=== PATIENT | male | born 1960 | race Caucasian/White ===

== ENCOUNTER 2018-05-12 10:25 | Outpatient (REF) | payer BC, SELFPAY ==
--- NOTE | 2018-05-12 09:10 | SKI_PTH ---
PATIENT: Catrachito Bragg LOC: [facility] U#:[id number] AGE/SX: 58/M ROOM: RE05/12/[address]: Bruno Cortes : 1960 BED: DIS: 05/12/2018 SPEC #: [id number] RECD: 05/13/18 12:40 STATUS: LUIS FERNANDO SR #: [id number] BRANDON: 05/12/18 09:[address]: Bruno Cortes DEPT: Surgical Specimen RECD BY: Kimberly Kolb Tissues: 1 - SKIN BIOPSY(SHAVE/PUNCH) Procedures: SKIN LEVEL 4 Comments: [id number]
== END 2018-05-12 10:45 ==
LOC: NCHCN 10:25
PROVIDERS: PCP Internal Medicine; Visit Provider Internal Medicine
DX: D22.62 Melanocytic nevi of left upper limb, including shoulder (principal)
CPT/HCPCS: 88305

== ENCOUNTER 2018-05-26 12:31 | Outpatient (REF) | payer BC, SELFPAY ==
[2018-05-26 14:04] LABS: Anion Gap 8.4 mmol/L (3-11); BUN 9 mg/dL (7-18); CO2 29.6 mmol/L (21.0-32.0); CREATININE 0.82 mg/dL (0.70-1.30); Calcium 8.9 mg/dL (8.5-10.1); Chloride 104 mmol/L (98-107); Glucose 85 mg/dL (70-100); Potassium 4.2 mmol/L (3.5-5.1); Sodium 142 mmol/L (136-145)
== END 2018-05-26 12:51 ==
LOC: NCHCN 12:31
PROVIDERS: PCP Internal Medicine; Visit Provider Internal Medicine
DX: I10 Essential (primary) hypertension (principal)
CPT/HCPCS: 80048

== ENCOUNTER 2020-02-05 12:10 | Outpatient (REF) | payer BC, SELFPAY ==
[2020-02-05 21:47] LABS: Anion Gap 8.7 mmol/L (3-11); BUN 12 mg/dL (7-18); CO2 27.3 mmol/L (21.0-32.0); CREATININE 0.89 mg/dL (0.70-1.30); Calcium 9.3 mg/dL (8.5-10.1); Chloride 103 mmol/L (98-107); Glucose 83 mg/dL (74-106); Potassium 4.1 mmol/L (3.5-5.1); Sodium 139 mmol/L (136-145)
== END 2020-02-05 12:30 ==
LOC: NCHCN 12:10
PROVIDERS: PCP Internal Medicine; Visit Provider Internal Medicine
DX: I10 Essential (primary) hypertension (principal)
CPT/HCPCS: 80048

== ENCOUNTER 2020-10-03 11:15 | Outpatient (REF) | payer BC, SELFPAY ==
[2020-10-03 14:25] LABS: Abs Immature Grans 0.02 10^3/uL (0.0-0.06); Absolute Basophil Count 0.03 10^3/uL (0.0-0.2); Absolute Eosinophil Count 0.06 10^3/uL (0.0-0.7); Absolute Lymphocyte Count 1.65 10^3/uL (1.2-3.4); Absolute Monocyte Count 0.64 10^3/uL (0.1-0.8); Basophils % 0.5; HCT 44.6 % (40.0-50.0); HGB 14.9 g/dL (13.5-17.5); Immature Grans % 0.3; Lymphocytes % 26.6; MCH 28.7 pg (27.0-33.0); MCHC 33.4 % (32.0-36.0); MCV 85.9 fL (80-95); MPV 10.2 fL (8.0-11.0); Monocytes % 10.3; Neutrophils % 61.3; Nucleated RBC 0 %; Platelet Count 278 10^3/uL (130-400); RBC 5.19 10^6/uL (4.36-5.78); RDW 13.2 % (11.8-14.1); RDW-SD 41.4 fL
[2020-10-03 15:03] LABS: ALT 32 U/L (16-63); AST 18 U/L (15-37); Albumin 3.8 g/dL (3.4-5.0); Alkaline Phosphatase 82 U/L (46-116); Anion Gap 9.9 mmol/L (3-11); BUN 7 mg/dL (7-18); Bilirubin, Total 0.4 mg/dL (0.2-1.0); CO2 26.1 mmol/L (21.0-32.0); CREATININE 0.9 mg/dL (0.70-1.30); Chloride 105 mmol/L (98-107); Glucose 102 mg/dL (74-106); Potassium 4.3 mmol/L (3.5-5.1); Sodium 141 mmol/L (136-145); Total Protein 7.3 g/dL (6.4-8.2)
[2020-10-03 15:18] LABS: Lipase 140 U/L (73-393)
== END 2020-10-03 11:16 | disposition home or self-care (01) ==
LOC: NCHCN 11:15
PROVIDERS: PCP Internal Medicine; Visit Provider Internal Medicine
DX: R10.10 Upper abdominal pain, unspecified (principal); I10 Essential (primary) hypertension; M25.511 Pain in right shoulder
CPT/HCPCS: 80053; 83690; 85025

== ENCOUNTER 2020-10-04 01:39 | Outpatient (CLI) | payer BC, SELFPAY ==
--- NOTE | 2020-10-04 | DI.RAD_ITS ---
Exam(s) XR SHOULDER RT COMPLETE 2+V EXAM: XR SHOULDER RT COMPLETE 2+V CLINICAL HISTORY: RT SHOULDER PAIN, M25.511 TECHNIQUE: COMPARISON: CR RIGHT SHOULDER COMPLETE from 06/14/2009 FINDINGS: Five views were obtained. There is no evidence of acute fracture or dislocation. There are moderate hypertrophic degenerative changes of the acromial clavicular joint. Slight marginal osteophyte form ation of the glenoid and humeral head noted. No soft tissue calcification seen. IMPRESSION: DJD of acromioclavicular joint. No evidence of acute injury. RADIATION DOSE DELIVERED: Total DLP
== END 2020-10-04 01:59 ==
PROVIDERS: PCP Internal Medicine; Visit Provider Internal Medicine
DX: M19.011 Primary osteoarthritis, right shoulder (principal)
CPT/HCPCS: 73030

== ENCOUNTER 2020-10-18 02:47 | Outpatient (CLI) | payer BC, SELFPAY ==
[2020-10-18] MEDS: Omnipaque 350 MG/ML 50 ML BTL IJ (08:14)
[2020-10-18] MEDS: Breeza Beverage 473 ML BTL PO (08:15)
[2020-10-18] MEDS: Normal Saline - Diluent 50 ML VIAL IV (09:23)
[2020-10-18] MEDS: Omnipaque 350 MG/ML 100 ML BTL IJ (09:24)
[2020-10-18] MEDS: Normal Saline Flush 10 ML SYR IVP (09:25)
--- NOTE | 2020-10-18 09:45 | DI.CT_ITS ---
Exam(s) CT ABDOMEN PELVIS W EXAM: CT ABDOMEN PELVIS W CLINICAL HISTORY: UPPER ABD PAIN, R10.10 TECHNIQUE: Imaging Protocol: Axial computed tomography images with coronal and sagittal reformatted images were created and reviewed CONTRAST MATERIAL: Intravenous: Omnipaque 350 Contrast volume:100 mL Oral: Yes COMPARISON: No exams were available for comparison FINDINGS: ABDOMEN: Lung Bases: Normal where visualized. Liver: Normal density. There is a 1 cm cyst in the left lobe of the liver. Portal, Superior Mesenteric, and Splenic Veins: Unremarkable. Gallbladder and Biliary Tract: No radiodense calculus or dilation. Pancreas: Normal density, no abnormal calcifications or inflammatory process. Spleen: There is ill-defined 1.5 cm hypodense area in the mid spleen with an associated calcification . Adrenals: No masses seen. Kidneys: Normal size, contour and axis. No radiodense stones or obstructive uropathy. No masses seen. Abdominal Aorta: Abdominal portion non-dilated. Bowel: No obstruction or bowel wall thickening. Appendix is unremarkable. Peritoneal Cavity: No ascites, collection or mesenteric inflammatory response. No free air. Lymph Nodes: Within normal limits. Bones: Within normal limits for the patient's age. Degenerative changes in the lumbar spine are note d resulting in central spinal canal stenosis at L3-4 and L4-L5. Soft Tissues: Unremarkable. PELVIS: Bladder: Symmetric distention, no gross wall thickening. Reproductive Organs: Mildly enlarged prostate gland with associated calcifications. Lymph Nodes: Within normal limits. Bones: Within normal limits for the patient's age. IMPRESSION: 1. Hypodense area in the mid spleen with a single calcification. MRI should be considered for further evaluation. 2. No acute abdominal pelvic process. 3. Multilevel degenerative changes in the lumbar spine resulting in central spinal canal stenosis at L3-L4 and L4-L5. RADIATION DOSE DELIVERED: 1,194.78mGy.cm Total DLP DATA REPOSITORY: All CT scans at this facility are submitted to the National Radiology Data Registry (NRDR) Dose Index Registry (DIR) with the [employer] (A[employer]). RADIATION OPTIMIZATION: All CT scans at this facility use at least one of these dose optimization te chniques: automated exposure control; mA and/or kV adjustment per patient size (includes targeted exa ms where dose is matched to clinical indication); or iterative reconstruction.
== END 2020-10-18 03:07 ==
PROVIDERS: PCP Internal Medicine; Visit Provider Internal Medicine
DX: D73.89 Other diseases of spleen (principal); M47.816 Spondylosis without myelopathy or radiculopathy, lumbar region; M48.061 Spinal stenosis, lumbar region without neurogenic claudication
CPT/HCPCS: 74177; J3490; Q9967

== ENCOUNTER 2021-01-13 02:26 | Outpatient (CLI) | payer BC, SELFPAY ==
--- NOTE | 2021-01-13 08:00 | DI.MRI_ITS ---
Exam(s) MR UPPER JOINT RT WO EXAM: MR UPPER JOINT RT WO CLINICAL HISTORY: Traumatic injury, significant weakness,ROTATOR CUFF TER,M75.41,M75.51,. TECHNIQUE: Multiplanar multisequence MRI was performed. COMPARISON: CR XR SHOULDER RT COMPLETE 2+V from 10/04/2020 CR XR SHOULDER RT COMPLETE 2+V from 10/04/2020 FINDINGS: BONES: There is no fracture or contusion pattern. JOINTS: Moderate hypertrophic changes are seen at the acromioclavicular joint. The glenohumeral join t is normal. TENDONS: Supraspinatus: There is a full-thickness tear of the supraspinatus tendon anteriorly near its inserti on site onto the greater tuberosity. There is a 1 cm gap present. Infraspinatus: There is a focus of hyperintense signal seen in the infraspinatus tendon at its insert ion site. (Series 6 cells and 1 image 14). This is suspicious for partial tear. Subscapularis: There is a hyperintense signal seen in the subscapularis tendon at its insertion site consistent with a partial tear. (Series 3001, image 11). There is thickening and intermediate signa l seen in the subscapularis tendon consistent with tendinosis. Teres Minor: Unremarkable. Biceps and [place]: Unremarkable. MUSCLES: Unremarkable. GLENOID LABRUM: Unremarkable on this noncontrast examination. SOFT TISSUES: Unremarkable. LIGAMENTS: Unremarkable. OTHER: There is fluid seen in the subacromial subdeltoid bursa secondary to the full-thickness rotato r cuff tear. IMPRESSION: 1. Full-thickness tear of the supraspinatus tendon near its insertion site. There is a 1 cm gap pres ent. 2. Partial tears involving the infraspinatus and subscapularis tendons. 3. Moderate degenerative changes of the acromioclavicular joint. DATA REPOSITORY:
== END 2021-01-13 02:46 ==
PROVIDERS: PCP Internal Medicine; Visit Provider Student in an Organized Health Care Education/Training Program
DX: M75.21 Bicipital tendinitis, right shoulder (principal); M75.41 Impingement syndrome of right shoulder; M75.51 Bursitis of right shoulder; S46.011A Strain of muscle(s) and tendon(s) of the rotator cuff of right shoulder, initial encounter; M19.011 Primary osteoarthritis, right shoulder
CPT/HCPCS: 73221

== ENCOUNTER 2021-01-25 03:37 | Outpatient (CLI) | payer BC, SELFPAY ==
[2021-01-25 10:09] LABS: Source Nasal/Nares
[2021-01-25 12:31] LABS: COVID-19 PCR Negative (Negative)
== END 2021-01-25 03:38 | disposition home or self-care (01) ==
LOC: LBO 03:37
PROVIDERS: PCP Internal Medicine; Visit Provider Student in an Organized Health Care Education/Training Program
DX: Z20.822 Contact with and (suspected) exposure to COVID-19 (principal)
CPT/HCPCS: 87635

== ENCOUNTER 2021-01-27 07:51 | Day surgery (SDC) | payer BC, SELFPAY ==
[2021-01-27] VITALS (8 sets, daily range): BP systolic 96–153; BP diastolic 53–98; PULSE 75–91; RESP 18–21; TEMP 36.4–36.5; O2SAT 93–98; BMI 32.8
--- NOTE | 2021-01-27 08:25 | W.ANESPRE ---
General Info Date of Service Date Performed: 01/27/21 Height: 5 ft 10 in Weight: 103.7 kg Body Mass Index (BMI): 32.8 Surgical Procedure: Operation Date: 01/27/21 10:10 Proposed Procedures Side Surgeon p SHOULDER arthroscopy with extensive debridement,subacromial decompression and rotator cuff Right Jan Ramirez MD s Shoulder Bicep Tenodesis/Teonotomy Right Jan Ramirez MD Meds Allergies and Home Medications Allergies Allergy/AdvReac Type Severity Reaction Status Date / Time No Known Allergies Allergy Unverified 01/27/21 08:18 Home Medication Medication Instructions Recorded acetaminophen [Acetaminophen Extra 1,000 mg PO TID #180 tab 03/27/16 Strength] hydrochlorothiazide 25 mg tablet 25 mg PO DAILY 12/22/20 losartan 50 mg tablet 50 mg PO DAILY 12/22/20 omeprazole 20 mg tablet,delayed 20 mg PO DAILY PRN 01/17/21 release Current Visit Medications: Current Medications Generic Name Dose Route Start Last Admin Trade Name Freq PRN Reason Stop Dose Admin Ringer's Solution 1,000 mls @ 100 mls/hr 01/27/21 06:00 IV 02/25/21 23:59 INFUSION HANK Cefazolin Sodium/Dextrose 2 gm in 50 mls @ 100 mls/hr 01/27/21 06:00 Ancef Duplex IVPB 02/25/21 23:59 PREOP HANK IV Miscellaneous Supplies 1 each 01/27/21 06:00 Iv Access IV 02/25/21 23:59 DIRECTED HANK Naproxen 250 - 500 mg 01/27/21 07:08 Naproxen 500 Mg Tab PO BID PRN PRN Oxycodone HCl 5 - 10 mg 01/27/21 07:08 Oxycodone 5 Mg Tab PO Q4H PRN PRN Sodium Chloride 0 ml 01/27/21 06:00 Normal Saline Flush 10 Ml Syr IV 02/25/21 23:59 PRN PRN Sodium Chloride 0 ml 01/27/21 06:00 Normal Saline 10 Ml Vial IJ 02/25/21 23:59 DIRECTED PRN Sterile Water 0 ml 01/27/21 06:00 Water,Injection,Sterile 10 Ml Vial IJ 02/25/21 23:59 DIRECTED PRN PFSH Active Problems Active Problems: Problem Status Onset Code Traumatic tear of right rotator cuff 09/30/20 S46.011A Tendonitis of long head of biceps brachii of right shoulder M75.21 Bursitis of right shoulder M75.51 Impingement syndrome of right shoulder M75.41 Medical History Medical History Acid reflux HTN (hypertension) Surgical History Surgical History Arthroplasty of knee (03/27/16) Right scope only not a total knee/joint Tobacco Smoking/Tobacco Use Status: Never Alcohol Alcohol Intake: current Alcohol intake frequency: a few times a month Alcohol type: hard liquor Substance Use Substance use: Never Substance use type: does not use Vital Signs and Lab Results Vital Signs Most Recent Vital Signs in EMR: Most Recent Vital Signs Temp Pulse Resp BP Pulse Ox 36.4 C L 91 H 18 153/98 H 97 01/27/21 08:10 01/27/21 08:10 01/27/21 08:10 01/27/21 08:10 01/27/21 08:10 Lab Results Blood Type / Crossmatch: No Data to Display Complete Blood Count: No Data to Display Complete Metabolic Panel: No Data to Display Liver Function Panel: No Data to Display Coagulation Panel: No Data to Display Cardiac Panel: No Data to Display Arterial Blood Gas: No Data to Display Venous Blood Gas: No Data to Display Pancreas Panel: No Data to Display Thyroid Panel: No Data to Display Infectious Disease: Coronavirus (COVID-19)(PCR) Negative (Negative) 01/25/21 09:10 01/25/21 Coronavirus 2019 Source Nasal/Nares 01/25/21 09:10 01/25/21 Blood Cultures: No Data to Display Toxicology Panel: No Data to Display Anesthesia Assessment and Plan Anesthesia History Personal History: No History of Anesthesia Complications Family History: No Family History of Anesthesia Complications Exercise Tolerance Exercise Tolerance: Metabolic Equivalents>4 Cardiac & Pulmonary Exam Cardiac Exam: Normal S1/S2 Heart Sounds Pulmonary Exam: Clear Bilateral Breath Sounds Airway Exam Known Difficult Airway: No Mallampati Class: 2 Mouth Opening: Normal (> 3cm) Thyromental Distance: Greater than 3 cm Neck Range of Motion: Full ROM Neck Circumference: Normal Teeth Condition: Normal Dentition ASA Classification ASA Score: ASA 2 Emergency Case?: No NPO Status NPO Status: NPO Clears >2 hours, Solids >8 hours Anesthesia Plan Resuscitation Status: Full Code Anesthesia Technique: General Anesthesia Airway Planned: Endotracheal Tube Pain Management: Surgeon and patient request nerve block Monitors Used: Standard Monitors Preoperative Comments:: 60 yo male for shoulder scope Sig PMHx: HTN, reflux, never smoker, occ etoh. Previous anesthesia: LMA 4 without issues.
[2021-01-27] MEDS: Lactated Ringers 1,000 ML 100 ML IV (09:15)
[2021-01-27] MEDS: ceFAZolin 2 GM/50 ML BAG IVPB (10:36)
--- NOTE | 2021-01-27 10:40 | W.ANESNERVE ---
Nerve Block Single Injection Procedure Date and Time Date Performed: 01/27/21 Procedure Start: 10:48 Location Where Procedure Performed Procedure Location: Day Surgery Unit Reason Performed: Postoperative Analgesia Requesting Provider: Jan Ramirez Timeout Performed Timeout Performed: Yes Monitoring Used ECG, Blood Pressure and SpO2 Sterility Sterility: Hand Hygiene, Surgical Cap, Surgical Mask, Sterile Gloves and Chlorhexidine Sedation Given During Procedure Sedation Given (Indicate Dose Given): No Sedation given Patient Mental Status Patient Mental Status: Other (would give sedation for blocks in future. ) Nerve Block 1st Nerve Block: Laterality: Right Block Type: Interscalene Needle / Catheter Used: 100mm SonoPlex II Local Anesthetic Bolus (Indicate Dose Given): Lidocaine used for local infiltration of skin, Injected in 3-5ml increments after negative blood aspiration, Bupivacaine 0.5% Dose:: 12 mL and Exparel Dose:: 10 mL Additives (Indicate Dose Given): None Ultrasound: Sterile probe cover and gel used Ultrasound Image Saved?: Yes Nerve Stimulator: Not Used Paresthesia: None Procedure Tolerated: No Complications and Other (tolerated well, but could benifit from [facility] in the future. ) Procedure Outcome: Successful Performed By: Bradley Gallardo
[2021-01-27] MEDS: EPINEPHrine 30 MG/30 ML VIAL (12:09)
--- NOTE | 2021-01-27 13:39 | W.PM.DSUDISC ---
Discharge Plan Disposition Patient Disposition: HOME Condition: Stable Discharge Details Reason For Visit: Right shoulder surgery Attending Provider: Jan Ramirez Primary Care Provider: Bruno Cortes Home Meds and New Rx's Prescriptions: New aspirin 81 mg tablet,delayed release (DR/EC) 81 mg PO DAILY 14 Days Qty: 14 RF: 0 naproxen 250 mg tablet 250 - 500 mg PO BID PRN (Reason: Moderate pain or swelling) Qty: 60 RF: 0 oxycodone 5 mg tablet 5 - 10 mg PO Q4H PRN (Reason: moderate to severe pain) Qty: 18 RF: 0 Continued hydrochlorothiazide 25 mg tablet 25 mg PO DAILY RF: 0 losartan 50 mg tablet 50 mg PO DAILY RF: 0 omeprazole 20 mg tablet,delayed release (DR/EC) 20 mg PO DAILY PRNRF: 0 acetaminophen [Acetaminophen Extra Strength] 500 MG tablet 1,000 mg PO TID Qty: 180 RF: 0 Discharge Instructions Additional Instructions: Surgery: Shoulder arthroscopy with rotator cuff repair, biceps tenodesis, extensive debridement, and subacromial decompression. Activity: For 6 weeks, you should keep your arm at your side in a neutral position at all times except for physical therapy. Do not try to lift or raise your arm using your own muscles. You should use the sling whenever you are out of the house. You may have to adjust the abduction pillow or remove it for comfort. At home it is best to remove the sling and rest the arm on a pillow at your side or support the operative side with your other hand. You may allow the arm to dangle at your side. A physical therapy prescription will be sent electronically to begin in 2-3 weeks. Prescriptions: Aspirin 81 mg take 1 daily to prevent a blood clot for 2 weeks Naproxen 250 mg take 1-2 every 12 hours with a meal as needed for moderate pain Oxycodone 5 mg take 1-2 every 4-6 hours as needed for severe pain You may use [id number] Tylenol (acetaminophen) as needed for mild pain. These pain medications may be taken all at once or in different combinations as needed. Also, recommend Colace (docusate) as a stool softener as surgery and pain medicine cause constipation. Dressings: Remove shoulder bandage after 3 days. Leave the sticky Steri-Strips in place until they fall off or remove them after you shower. Cover the incisions with Band-Aids or leave them open to air. You may shower after 5 days. Follow-up: 10-[address] Ramirez You may take off the leg compression stockings this evening at home. You may also leave them on a few days longer if you have a history of leg swelling or edema. Let us know right away if you develop any redness, drainage, fevers, chest pain, or trouble breathing. Do not drink alcohol or drive for at least 24 hours after anesthesia. Please call the office during business hours with any questions or concerns. Referrals: Jan Ramirez MD [ [facility] STAFF PHYSICIAN] - Discharge Orders Discharge Orders: Discharge Order (Routine); Ordered 01/27/21 Ordered By: Jan Ramirez DS: Diagnosis Discharge Diagnosis (1) Traumatic tear of right rotator cuff: Status: Acute (2) Tendonitis of long head of biceps brachii of right shoulder: Status: Acute (3) Bursitis of right shoulder: Status: Acute (4) Impingement syndrome of right shoulder: Status: Acute
--- NOTE | 2021-01-27 13:40 | W.ANESPOSTOP ---
Postoperative Evaluation Date, Time and Location Date Performed: 01/27/21 Time Performed: 13:41 Patient Location: PACU Vital Signs Most Recent Imported Vital Signs: Most Recent Vital Signs Temp Pulse Resp BP Pulse Ox 36.5 C 86 19 97/56 L 98 01/27/21 13:31 01/27/21 13:31 01/27/21 13:31 01/27/21 13:31 01/27/21 13:31 Pain Score Most Recent Pain Score: Most Recent Pain Score Pain Level 4 01/27/21 08:10 Assessment Mental Status: Awake (Alert & Oriented to Patient Baseline) Airway and Respiratory Function: Patent airway with normal (patient baseline) respiratory exam Cardiovascular Function: Hemodynamically Stable Hydration Status: Adequately Hydrated Nausea & Vomiting: No Nausea or Vomiting Pain: Pain is tolerable per patient Peripheral Nerve Block: Regional nerve block not resolved at time of post operative discharge
--- NOTE | 2021-01-27 14:10 | ROE_ITS ---
Date of service: 01/27/21 Time of Service: 12:00 Operative Note Operative Note DATE OF PROCEDURE: 01/27/21 PRE-OP DIAGNOSIS: Right: 1. Rotator cuff tear 2. LHB tendinopathy 3. Bursitis 4. Impingement POST-OP DIAGNOSIS: same Right: 1. Rotator cuff tear 2. SLAP tear & LHB tendinopathy 3. Bursitis 4. Impingement PROCEDURE: Right: 1. Rotator cuff repair, CPT# 03640. This involved repair of the subscapularis and supraspinatus using anchors and sutures to reattach the rotator cuff back to the footprint of the lesser and greater tuberosity. 2. Arthroscopic biceps tenodesis, CPT# 79130. This involved arthroscopically suturing and reattaching the long head of the biceps tendon to the proximal humerus at the superior margin of the bicipital groove with a screw at the correct tension. 3. Extensive debridement, CPT# 63165. This involved using arthroscopic hand instruments, power instruments, and radiofrequency instruments to release the long head of the biceps tendon and debride areas of labral tearing, partial rotator cuff tearing, synovitis, and chondromalacia about the lesser and greater tuberosity within the glenohumeral joint anteriorly, superiorly and posteriorly. 4. Subacromial decompression, CPT# 76501. This involved using arthroscopic power instruments and a radiofrequency wand to complete a bursectomy. The medical receptionist assistant was medically required in order to help assist in techniques above, which require positioning the arm, holding the arthroscope, and manipulating multiple instruments and sutures at the same time. This cannot be done without the help of an experienced medical receptionist assistant. SURGEON: Jan Ramirez VALIDATION INTERN: Selina Casas ANESTHESIA TYPE: General LMA/ETT and Primary Nerve Block Refer to Anesthesia Record ESTIMATED BLOOD LOSS: 5 PATHOLOGY: none sent COMPLICATIONS: None Patient was transported to: PACU Patient's condition: stable Implants: Arthrex: 4.75mm SwiveLocks x 5 (2 knotless) Indications: The patient was diagnosed with the above conditions and appropriately indicated for surgical intervention. Please see complete medical record for details. Findings: Exam under anesthesia: Full symmetrical range of motion, no instability. Glenohumeral joint: Significant anterior and superior synovitis. Displaced biceps tendon anchor superior labral tear with abundant fraying. Long head biceps tendon significant synovitis hemorrhagic injection in the bicipital groove. Partial upper border lateral margin subscapularis fraying and disruption from the lesser tuberosity. Significant full-thickness moderately retracted however in a single healthy rotator cuff sleeve supraspinatus rotator cuff tear with only mild involvement partial articular sided infraspinatus. Subacromial space: Moderate bursitis. No significant subacromial bone spur. Supraspinatus tear starting anteriorly at the rotator interval and stopping about the infraspinatus posteriorly. Procedure Description: In the operating room, general anesthesia was induced. Bilateral shoulders were examined. The patient was positioned in the beachchair position. All bony prominences were well-padded. Preoperative antibiotics were administered. The shoulder was prepped and draped in the usual sterile fashion. The correct patient, procedure, and side of the procedure were all verified prior to incision. Starting through the posterior portal a standard complete diagnostic arthroscopy was performed of the glenohumeral joint including inspection of the long head of the biceps, anterior and superior labrum, subscapularis tendon, supraspinatus and infraspinatus tendons, and axillary recess. The glenoid and humeral head cartilage as well as the posterior labrum were inspected from an anterior viewing portal. Significant findings and interventions noted above. A rigid cannula was inserted anteriorly. The lesser tuberosity footprint was prepared using hand and power instruments for tendon healing. The arm was positioned in neutral. An all-arthroscopic suprapectoral biceps tenodesis was performedusing a Loop N Tack method with a SutureTape FiberLink cinched around and through the tendon. The biceps was tenotomized from the labrum and sutures withdrawn out the anterior cannula for later fixation combined with the subscapularis repair. Using a 1 portal technique, a suture lasso was used to pass a suture tape fiber link through the lateral and superior subscapularis. This stitch was used for traction and passing of a fiber tape more medially and centrally in the subscapularis tendon body. The punch was used to localize placement of the anchor. Both subscapularis repair sutures were passed through the anchor eyelet, the biceps tenodesis repair suture was added, and the anchor was brought down to the bone with the sutures tensioned appropriately taking care to withdraw the biceps tendon using direct pressure on the arm to the top of the groove. The arm was brought through full external rotation demonstrating no restricted motion due to the repair and secure fixation of both tendons and anchor to bone. Starting through the posterior portal, the arthroscope was directed into the subacromial space. A lateral 50 yard line lateral portal was created. A combination of power instruments and a radiofrequency ablator were used to debride bursitis anteriorly, posteriorly, and laterally as well as expose the un dersurface of the acromion. The coracoacromial ligament was preserved. The bursectomy was completed viewing laterally and working from posteriorly and the rotator cuff was thoroughly inspected with findings noted above. Cannulas were inserted at the superior anterior lateral and superior posterior lateral margins of the acromion as well as at the lateral 50 yard line portal. The rotator cuff tear was inspected and debrided of frayed tissue at the margins clearly exposing the full-thickness moderate retracted supraspinatus tear. The greater was tuberosity cleared of fibrous tissue over the footprint, and lightly decorticated to optimize bone tendon healing, and the bursectomy was extended laterally. A punch was used to localize placement the first medial row knotless SwiveLock anchor starting anteriorly. A suture fashion just a grasper was used to pass this fiber tape through the entire thickness of the tendon at the appropriate level medially. The self retrieving suture passer was then used to pass a fiber link closer to the tear margin and this link used to shuttle the 3 knotless repair sutures through the tendon. This process was repeated for a posterior knotless medial row anchor again passing the tapes at the appropriate level medially and using a suture length to shuttle the knotless repair sutures through the supraspinatus more medially. Provisional reduction was confirmed with a cuff grasper and optimal arm placement confirmed as well. The knotless repair mechanisms were then engaged by carefully retrieving a repair stitch from the anterior anchor and shuttling it with the length through the posterior anchor and repeating this retrieving the repair stitch from the posterior anchor and shuttling through the anterior anchor. The rotator cuff grasper was used to completely reduce the supraspinatus over the prepared greater tuberosity footprint ending at the lateral margin and each of these knotless repair sutures was provisionally tightened securing the medial row in a knotless type a double garret fashion. Reduction was maintained with the cuff grasper removed. Lastly, a fiber tape from the anterior and posterior anchors was brought to an anterior lateral row anterior anchor and this process repeated for the posterior lateral row posterior anchor achieving speed bridge FiberTape compression over the reduced rotator cuff repair. Final tightening of the medial bridge repair was confirmed. The repair was inspected through shoulder range of motion and found to be stable with secure fixation. All suture tails were appropriately cut. The shoulder was drained of arthroscopic fluid. All portal sites were copiously irrigated. These incisions were closed using 3-0 Monocryl in a buried fashion and then covered with Mastisol, Steri-Strips, Xeroform, dry gauze, and ABDs. The dressings were covered and secured with Medipore tape. The operative extremity was placed into a sling for immobilization. The patient awoke from anesthesia without complication and was transferred to the recovery room in a stable condition.
== END 2021-01-27 15:30 | disposition home or self-care (01) ==
PROVIDERS: PCP Internal Medicine; Visit Provider Student in an Organized Health Care Education/Training Program
PROC: (CPT 29827; principal; 2021-01-27 10:00)
PROC: (CPT 23430; 2021-01-27 10:00)
DX: S46.011A Strain of muscle(s) and tendon(s) of the rotator cuff of right shoulder, initial encounter (principal); M75.21 Bicipital tendinitis, right shoulder; M75.41 Impingement syndrome of right shoulder; M75.51 Bursitis of right shoulder; X58.XXXA Exposure to other specified factors, initial encounter
CPT/HCPCS: 29827; 29828; 29826; 29823; 76942; J0690; J1100; J1885; J2001; J2250; J2405; J2704

== ENCOUNTER 2021-07-11 11:38 | Outpatient (CLI) | payer BC, SELFPAY ==
--- NOTE | 2021-07-11 | DI.RAD_ITS ---
Exam(s) XR SHOULDER LT COMPLETE 2+V EXAM: XR SHOULDER LT COMPLETE 2+V CLINICAL HISTORY: LEFT SHOULDER PAIN M25.512. TECHNIQUE: 2D digital imaging was performed of the left shoulder. Five images were obtained. AP, G rashey, Y-view and axillary views were obtained. COMPARISON: No previous for comparison. FINDINGS: BONES: No acute fracture is present. No bony destructive lesion is seen. JOINTS: No dislocation present. There are mild degenerative changes seen at the acromioclavicular lizz nt. SOFT TISSUE: Normal. IMPRESSION: Mild degenerative changes of the left shoulder. DATA REPOSITORY: RADIATION DOSE DELIVERED:
== END 2021-07-11 11:58 ==
PROVIDERS: PCP Internal Medicine; Visit Provider Family Medicine
DX: M25.512 Pain in left shoulder (principal); M19.012 Primary osteoarthritis, left shoulder
CPT/HCPCS: 73030

== ENCOUNTER 2021-07-24 01:07 | Outpatient (CLI) | payer BC, SELFPAY ==
--- NOTE | 2021-07-24 07:45 | DI.MRI_ITS ---
Exam(s) MR UPPER JOINT LT WO EXAM: MR UPPER JOINT LT WO CLINICAL HISTORY: traumatic shoulder pain weakness,tendinitis,m75.22,s46.012a. TECHNIQUE: Multiplanar multisequence MRI was performed. COMPARISON: Plain films July 04 FINDINGS: BONES: There is no fracture or contusion pattern. JOINTS: The acromioclavicular joint is normal. The glenohumeral joint is normal. TENDONS: Supraspinatus: Thickening and high signal. Discrete focal full-thickness tear seen distally at the a ttachment. Infraspinatus: Unremarkable. Subscapularis: Mild edema but no focal tear.. [place]: Unremarkable. Biceps and [place]: Unremarkable. MUSCLES: Unremarkable. No supraspinatus atrophy. GLENOID LABRUM: Unremarkable on this noncontrast examination. SOFT TISSUES: Unremarkable. LIGAMENTS: Unremarkable. OTHER: There is small amount of fluid in the subacromial subdeltoid bursa. IMPRESSION: Full-thickness tear distal supraspinatus tendon. Tendinosis subscapularis. DATA REPOSITORY:
== END 2021-07-24 01:27 ==
LOC: DI 01:07
PROVIDERS: PCP Internal Medicine; Visit Provider Student in an Organized Health Care Education/Training Program
DX: M25.512 Pain in left shoulder (principal); M75.22 Bicipital tendinitis, left shoulder; S46.012A Strain of muscle(s) and tendon(s) of the rotator cuff of left shoulder, initial encounter
CPT/HCPCS: 73221

== ENCOUNTER 2021-08-09 03:54 | Outpatient (CLI) | payer BC, SELFPAY ==
[2021-08-09 12:34] LABS: Source Nasal/Nares
[2021-08-09 15:25] LABS: COVID-19 PCR Negative (Negative)
== END 2021-08-09 03:55 | disposition home or self-care (01) ==
LOC: LBO 03:55
PROVIDERS: PCP Internal Medicine; Visit Provider Student in an Organized Health Care Education/Training Program
DX: Z20.822 Contact with and (suspected) exposure to COVID-19 (principal); Z01.818 Encounter for other preprocedural examination
CPT/HCPCS: 87635

== ENCOUNTER 2021-08-11 07:14 | Day surgery (SDC) | payer BC, SELFPAY ==
--- NOTE | 2021-08-10 18:13 | W.ANESPRE ---
General Info Date of Service Date Performed: 08/11/21 Height: 5 ft 10 in Weight: 97.522 kg Body Mass Index (BMI): 30.8 Surgical Procedure: Operation Date: 08/11/21 09:10 Proposed Procedure Side Surgeon p Shoulder Rotator Cuff Arthroscopic w/ Extensive Debridement, Biceps Tenodesis, Subacromial Decompression Left Jan Ramirez MD Meds Allergies and Home Medications Allergies Allergy/AdvReac Type Severity Reaction Status Date / Time No Known Allergies Allergy Unverified 08/11/21 07:33 Home Medication Medication Instructions Recorded acetaminophen 500 mg tablet 1,000 mg PO TID #180 tab 03/27/16 (Acetaminophen Extra Strength) hydrochlorothiazide 25 mg tablet 25 mg PO DAILY 12/22/20 losartan 50 mg tablet 50 mg PO DAILY 12/22/20 omeprazole 20 mg tablet,delayed 20 mg PO DAILY PRN 01/17/21 release aspirin 81 mg tablet,delayed 81 mg PO DAILY 14 Days #14 tab 08/11/21 release naproxen 250 mg tablet 250 - 500 mg PO BID PRN #40 tab 08/11/21 oxycodone 5 mg tablet 5 - 10 mg PO Q4H PRN #18 tab MDD 08/11/21 30 mg Current Visit Medications: Current Medications Generic Name Dose Route Start Last Admin Trade Name Freq PRN Reason Stop Dose Admin Ringer's Solution 1,000 mls @ 100 mls/hr 08/11/21 06:00 IV 08/12/21 23:59 INFUSION HANK Cefazolin Sodium/Dextrose 2 gm in 50 mls @ 100 mls/hr 08/11/21 06:00 Ancef Duplex IVPB 08/11/21 23:59 PREOP HANK IV Miscellaneous Supplies 1 each 08/11/21 06:00 Iv Access IV 08/12/21 23:59 DIRECTED HANK Sodium Chloride 0 ml 08/11/21 06:00 Normal Saline Flush 10 Ml Syr IV 08/12/21 23:59 PRN PRN Sodium Chloride 0 ml 08/11/21 06:00 Normal Saline 10 Ml Vial IJ 08/12/21 23:59 DIRECTED PRN Sterile Water 0 ml 08/11/21 06:00 Water,Injection,Sterile 10 Ml Vial IJ 08/12/21 23:59 DIRECTED PRN PFSH Active Problems Active Problems: Problem Status Onset Code Bursitis of left shoulder M75.52 Tendinitis of long head of biceps brachii of left shoulder M75.22 Traumatic tear of left rotator cuff ~06/2021 S46.012A Medical History Medical History Acid reflux Bursitis of right shoulder HTN (hypertension) Impingement syndrome of right shoulder Tendonitis of long head of biceps brachii of right shoulder Traumatic tear of right rotator cuff (09/30/20) Surgical History Surgical History Arthroplasty of knee (03/27/16) Right scope only not a total knee/joint History of arthroscopy of right shoulder (01/27/21) With subscapularis and supraspinatus rotator cuff repairs, biceps tenodesis, extensive debridement, and subacromial decompression. Tobacco Smoking/Tobacco Use Status: Never Alcohol Alcohol Intake: current Alcohol intake frequency: a few times a month Alcohol type: hard liquor Substance Use Substance use: Never Substance use type: does not use Vital Signs and Lab Results Lab Results Blood Type / Crossmatch: No Data to Display Complete Blood Count: No Data to Display Complete Metabolic Panel: No Data to Display Liver Function Panel: No Data to Display Coagulation Panel: No Data to Display Cardiac Panel: No Data to Display Arterial Blood Gas: No Data to Display Venous Blood Gas: No Data to Display Pancreas Panel: No Data to Display Thyroid Panel: No Data to Display Infectious Disease: Coronavirus (COVID-19)(PCR) Negative (Negative) 08/09/21 09:12 08/09/21 Coronavirus 2019 Source Nasal/Nares 08/09/21 09:12 08/09/21 Blood Cultures: No Data to Display Toxicology Panel: No Data to Display Anesthesia Assessment and Plan Anesthesia History Personal History: No History of Anesthesia Complications Family History: No Family History of Anesthesia Complications Exercise Tolerance Exercise Tolerance: Metabolic Equivalents>4 Cardiac & Pulmonary Exam Cardiac Exam: Normal S1/S2 Heart Sounds Pulmonary Exam: Clear Bilateral Breath Sounds Implantable Cardiac Device Does patient have a Pacemaker or an ICD?: No Airway Exam Known Difficult Airway: No Mallampati Class: 2 Mouth Opening: Normal (> 3cm) Thyromental Distance: Greater than 3 cm Neck Range of Motion: Full ROM Neck Circumference: Normal Teeth Condition: Normal Dentition ASA Classification ASA Score: ASA 2 Emergency Case?: No NPO Status NPO Status: NPO Clears >2 hours, Solids >8 hours Anesthesia Plan Resuscitation Status: Full Code Anesthesia Technique: General Anesthesia Airway Planned: Endotracheal Tube Pain Management: Surgeon and patient request nerve block Monitors Used: Standard Monitors Preoperative Comments:: 60 yo male for left shoulder scope. had right shoulder done in January 2021, no complications, denies any major changes to his health since then. Sig PMHx: HTN, reflux, never smoker, occ etoh. Previous anesthesia: LMA 4, sidhu 2 grade 1. did receive vasoactive during last shoulder. ISB for previous shoulder 07/23 on discharge. no sedation given for block, but noted that it should be used in the future.
[2021-08-11] VITALS (8 sets, daily range): BP systolic 107–138; BP diastolic 59–90; PULSE 73–89; RESP 15–20; TEMP 36.3–36.8; O2SAT 93–98; BMI 30.8
[2021-08-11] MEDS: Lactated Ringers 1,000 ML 100 ML IV (07:59)
--- NOTE | 2021-08-11 09:09 | W.ANESNERVE ---
Nerve Block Single Injection Procedure Date and Time Date Performed: 08/11/21 Procedure Start: 08:58 Location Where Procedure Performed Procedure Location: Day Surgery Unit Reason Performed: Postoperative Analgesia Requesting Provider: Jan Ramirez Timeout Performed Timeout Performed: Yes Monitoring Used ECG, Blood Pressure and SpO2 Sterility Sterility: Hand Hygiene, Surgical Cap, Surgical Mask, Sterile Gloves, Sterile Drape/Sheet and Chlorhexidine Sedation Given During Procedure Sedation Given (Indicate Dose Given): Versed IV Dose:: 3 mg Patient Mental Status Patient Mental Status: Sedate with meaningful communication Nerve Block 1st Nerve Block: Laterality: Left Block Type: Interscalene Needle / Catheter Used: 100mm SonoPlex II Local Anesthetic Bolus (Indicate Dose Given): Lidocaine used for local infiltration of skin, Injected in 3-5ml increments after negative blood aspiration and Bupivacaine 0.5% Dose:: 15 mL Additives (Indicate Dose Given): Epinephrine to make 1:200,000 (5mcg/ml) Dose:: 2.5 mcg/ml and Precedex Dose:: 30 mcg Ultrasound: Sterile probe cover and gel used Ultrasound Image Saved?: Yes Nerve Stimulator: Not Used Paresthesia: None Procedure Tolerated: No Complications Procedure Outcome: Successful Performed By: Bradley Gallardo
[2021-08-11] MEDS: ceFAZolin 2 GM/50 ML BAG IVPB (09:56)
[2021-08-11] MEDS: EPINEPHrine 30 MG/30 ML VIAL (11:08)
--- NOTE | 2021-08-11 11:39 | W.PM.DSUDISC ---
Discharge Plan Disposition Patient Disposition: HOME Condition: Stable Discharge Details Reason For Visit: Left shoulder surgery Attending Provider: Jan Ramirez Primary Care Provider: Bruno Cortes Home Meds and New Rx's Prescriptions: New aspirin 81 mg tablet,delayed release (DR/EC) 81 mg PO DAILY 14 Days Qty: 14 0RF naproxen 250 mg tablet 250 - 500 mg PO BID PRNQty: 40 0RF Rx Instructions: take with a meal oxycodone 5 mg tablet 5 - 10 mg PO Q4H MDD 30 mg PRN (Reason: moderate to severe pain) Qty: 18 0RF Continued hydrochlorothiazide 25 mg tablet 25 mg PO DAILY 0RF losartan 50 mg tablet 50 mg PO DAILY 0RF omeprazole 20 mg tablet,delayed release (DR/EC) 20 mg PO DAILY PRN0RF acetaminophen [Acetaminophen Extra Strength] 500 MG tablet 1,000 mg PO TID Qty: 180 0RF Discharge Instructions Additional Instructions: Surgery: Left shoulder arthroscopy with rotator cuff repair (subscapularis and supraspinatus), biceps tenodesis, extensive debridement, and subacromial decompression. Activity: For 6 weeks, you should keep your arm at your side in a neutral position at all times except for physical therapy. Do not try to lift or raise your arm using your own muscles. You should use the sling whenever you are out of the house. You may have to adjust the abduction pillow or remove it for comfort. At home it is best to remove the sling and rest the arm on a pillow at your side or support the operative side with your other hand. You may allow the arm to dangle at your side. A physical therapy prescription will be sent electronically to begin in about 3 weeks. STANDARD protocol. Prescriptions: Aspirin 81 mg take 1 daily to prevent a blood clot for 2 weeks Naproxen 250 mg take 1-2 every 12 hours with a meal as needed for moderate pain Oxycodone 5 mg take 1-2 every 4-6 hours as needed for severe pain You may use [id number] Tylenol (acetaminophen) as needed for mild pain. These pain medications may be taken all at once or in different combinations as needed. Also, recommend Colace (docusate) as a stool softener as surgery and pain medicine cause constipation. Dressings: Remove shoulder bandage after 3 days. Leave the sticky Steri-Strips in place until they fall off or remove them after you shower. Cover the incisions with Band-Aids or leave them open to air. You may shower after 5 days. Follow-up: 10-[address] Ramirez You may take off the leg compression stockings this evening at home. You may also leave them on a few days longer if you have a history of leg swelling or edema. Let us know right away if you develop any redness, drainage, fevers, chest pain, or trouble breathing. Do not drink alcohol or drive for at least 24 hours after anesthesia. Please call the office during business hours with any questions or concerns. Referrals: Jan Ramirez MD [ [facility] STAFF PHYSICIAN] - Discharge Orders Discharge Orders: Discharge Order (Routine); Ordered 08/11/21 Ordered By: Jan Ramirez DS: Diagnosis Discharge Diagnosis (1) Bursitis of left shoulder: Status: Acute (2) Tendinitis of long head of biceps brachii of left shoulder: Status: Acute (3) Traumatic tear of left rotator cuff: Status: Acute
--- NOTE | 2021-08-11 11:46 | ROE_ITS ---
Date of service: 08/11/21 Time of Service: 10:00 Operative Note Operative Note DATE OF PROCEDURE: 08/11/21 PRE-OP DIAGNOSIS: Left: 1. Rotator cuff tear 2. LHB tendinopathy 3. Bursitis POST-OP DIAGNOSIS: same PROCEDURE: Left: 1. Rotator cuff repair, CPT# 43905. This involved repair of the subscapularis and supraspinatus using anchors and sutures to reattach the rotator cuff back to the footprint of the lesser and greater tuberosity. 2. Arthroscopic biceps tenodesis, CPT# 44825. This involved arthroscopically suturing and reattaching the long head of the biceps tendon to the proximal humerus at the superior margin of the bicipital groove with a screw at the correct tension. 3. Extensive debridement, CPT# 35979. This involved using arthroscopic hand instruments, power instruments, and radiofrequency instruments to release the long head of the biceps tendon and debride areas of labral tearing, synovitis, and chondromalacia about the biceps groove within the glenohumeral joint anteriorly, superiorly and posteriorly. 4. Subacromial decompression with acromioplasty CPT# 63843. This involved using arthroscopic power instruments and a radiofrequency wand to complete a bursectom y and smooth the undersurface of the acromion. The store assistant was medically required in order to help assist in techniques above, which require positioning the arm, holding the arthroscope, and manipu lating multiple instruments and sutures at the same time. This cannot be done without the help of an experienced store assistant. SURGEON: Jan Ramirez INTERNAL REVENUE AGENT: Selina Casas ANESTHESIA TYPE: General LMA/ETT and Primary Nerve Block Refer to Anesthesia Record ESTIMATED BLOOD LOSS: 15 PATHOLOGY: none sent COMPLICATIONS: None Patient was transported to: PACU Patient's condition: stable Implants: Arthrex: 4.75mm SwiveLocks x 2 Indications: The patient was diagnosed with the above conditions and appropriately indicated for surgical intervention. Please see complete medical record for details. Findings: Exam under anesthesia: Full range of motion, no instability Glenohumeral joint: Abundant inflamed anterior superior and to a lesser extent posterior synovitis. Long head biceps significant hemorrhagic injection. Type II SLAP tear with superior labral fraying. Upper margin partial subscapularis tear. Mild chondromalacia about anterior greater tuberosity, bicipital groove, and upper lesser tuberosity. Subacromial space: Significant bursitis. Mild subacromial bone spurring. Full- thickness minimally retracted isolated supraspinatus tear with stable posterior margin. Procedure Description: In the operating room, general anesthesia was induced. Bilateral shoulders were examined. The patient was positioned in the beachchair position. All bony prominences were well-padded. Preoperative antibiotics were administered. The shoulder was prepped and draped in the usual sterile fashion. The correct patient, procedure, and side of the procedure were all verified prior to incision. Starting through the posterior portal a standard complete diagnostic arthroscopy was performed of the glenohumeral joint including inspection of the long head of the biceps, anterior and superior labrum, subscapularis tendon, supraspinatus and infraspinatus tendons, and axillary recess. The glenoid and humeral head cartilage as well as the posterior labrum were inspected from an anterior viewing portal. Significant findings and interventions noted above. A rigid cannula was inserted anteriorly. The loop and tack method was used to secure the intra-articular segment of the biceps tendon using a suture tape FiberLink secured around and then passed through the tendon. The biceps tendon was amputated using arthroscopic scissors and withdrawn down the arm to the superior margin of the bicipital groove. A single portal subscapularis repair was then done using the 90 degree lasso and a FiberTape placed in the upper lateral margin simple stitch about the tear region. The punch was used to localize placement of the suture anchor with the arm positioned in neutral to avoid undue tension on the subscap repair. The biceps tenodesis and subscapularis repair sutures were loaded onto a 4.75 mm SwiveLock anchor which was successfully deployed with appropriate tension and excellent fixation strength. Both repairs were tested with biceps compression and external rotatio n demonstrated no motion and strong repairs. Starting through the posterior portal, the arthroscope was directed into the subacromial space. A lateral 50 yard line lateral portal was created. A com bination of power instruments and a radiofrequency ablator were used to debride bursitis anteriorly, posteriorly, and laterally as well as expose and smooth bone spurring on the undersurface of the acromion. The coracoacromial ligament was preserved. The bursectomy was completed viewing laterally and working from posteriorly and the rotator cuff was thoroughly inspected with findings noted above. An additional posterior superolateral portal was created and Anuradha cannula inserted. The isolated supraspinatus tear was localized with cuff graspers confirming stable posterior margin and full-thickness tearing. It was elevated and the bony bed below debrided with mechanical shaver and then smooth and prepared to optimize bone tendon healing with the pineapple rasp. The lateral tissue cuff was reasonably close to the lateral greater tuberosity footprint. Decision was made to omit any medial row fixation given the limited tear. A self retrieving suture passer was then used to pass an inverted horizontal mattress FiberTape centrally in the tear at the appropriate level medially with good tissue fixation. An additional suture tape FiberLink was then secured at the anterior margin in cinch mode. Tissue was cleared for the single lateral row anchor, which was punched, and then all repair sutures loaded on 4.75 mm SwiveLock anchor which was successfully deployed with appropriate reduction tissue tension. The repair was probed and tested through arm range of motion demonstrated excellent fixation strength. There was no additional tearing or need for additional sutures anteriorly posteriorly. The shoulder was drained of arthroscopic fluid. All portal sites were copiously irrigated. These incisions were closed using 3-0 Monocryl in a buried fashion and then covered with Mastisol, Steri-Strips, Xeroform, dry gauze, and ABDs. The dressings were covered and secured with Medipore tape. The operative extremity was placed into a sling for immobilization. The patient awoke from anesthesia without complication and was transferred to the recovery room in a stable condition.
--- NOTE | 2021-08-11 12:27 | W.ANESPOSTOP ---
Postoperative Evaluation Date, Time and Location Date Performed: 08/11/21 Time Performed: 12:27 Patient Location: PACU Vital Signs Most Recent Imported Vital Signs: Most Recent Vital Signs Temp Pulse Resp BP Pulse Ox 36.6 C 81 16 109/68 97 08/11/21 12:10 08/11/21 12:10 08/11/21 12:10 08/11/21 12:10 08/11/21 12:10 Pain Score Most Recent Pain Score: Most Recent Pain Score Pain Level 0 08/11/21 12:10 Assessment Mental Status: Awake (Alert & Oriented to Patient Baseline) Airway and Respiratory Function: Patent airway with normal (patient baseline) respiratory exam Cardiovascular Function: Hemodynamically Stable Hydration Status: Adequately Hydrated Nausea & Vomiting: No Nausea or Vomiting Pain: Pain is tolerable per patient Peripheral Nerve Block: Regional nerve block not resolved at time of post operative discharge
== END 2021-08-11 13:47 | disposition home or self-care (01) ==
PROVIDERS: PCP Internal Medicine; Visit Provider Student in an Organized Health Care Education/Training Program
PROC: (CPT 29827; principal; 2021-08-11 09:00)
DX: S46.012A Strain of muscle(s) and tendon(s) of the rotator cuff of left shoulder, initial encounter (principal); M75.52 Bursitis of left shoulder; M75.22 Bicipital tendinitis, left shoulder; M94.212 Chondromalacia, left shoulder; I10 Essential (primary) hypertension; X58.XXXA Exposure to other specified factors, initial encounter
CPT/HCPCS: 29827; 29826; 29828; 29823; 76942; J0171; J0690; J1100; J2001; J2250; J2405; J2704

== ENCOUNTER 2021-09-22 16:14 | Outpatient (REF) | payer BC, SELFPAY ==
[2021-09-22 14:52] LABS: Anion Gap 11.9 mmol/L (3-11); BUN 11 mg/dL (7-18); CO2 24.1 mmol/L (21.0-32.0); CREATININE 0.9 mg/dL (0.70-1.30); Calcium 8.7 mg/dL (8.5-10.1); Calculated LDL 160 mg/dL (<100); Chloride 102 mmol/L (98-107); Cholesterol 236 mg/dL (<200); Glucose 96 mg/dL (74-106); HDL Cholesterol 54 mg/dL (40-60); Potassium 3.6 mmol/L (3.5-5.1); Sodium 138 mmol/L (136-145); Triglyceride 113 mg/dL (<150)
== END 2021-09-22 16:15 | disposition home or self-care (01) ==
LOC: NCHCN 16:14
PROVIDERS: PCP Internal Medicine; Visit Provider Family Medicine
DX: Z00.00 Encounter for general adult medical examination without abnormal findings (principal); I10 Essential (primary) hypertension
CPT/HCPCS: 80048; 80061

== ENCOUNTER → 2022-02-10 10:27 | Outpatient (CLI) | payer BC, SELFPAY ==
--- NOTE | 2022-02-10 | DI.RAD_ITS ---
Exam(s) XR CHEST 2V PA LATERAL EXAM: XR CHEST 2V PA LATERAL CLINICAL HISTORY: COUGH TECHNIQUE: 2D digital imaging was performed of the chest. Two images were obtained. PA and lateral views were obtained. COMPARISON: No exams were available for comparison FINDINGS: MEDIASTINUM: Normal. HEART: Normal. PULMONARY VASCULATURE: Normal. LUNGS: Clear. PLEURAL SPACE: No pleural effusion or pneumothorax. BONE:Within normal limits for the patient's age. OTHER FINDINGS:Normal. IMPRESSION: No acute pulmonary findings. DATA REPOSITORY: RADIATION DOSE DELIVERED:
--- NOTE | 2022-02-10 10:46 | DI.VRAD_ITS ---
PROCEDURE INFORMATION: Exam: XR Chest Exam date and time: 02/10/2022 10:36 AM Age: 62 years old Clinical indication: Patient HX: Worseing cough 3x weeks, antibx not helping TECHNIQUE: Imaging protocol: Radiologic exam of the chest. Views: 2 views. COMPARISON: MR UPPER JOINT LT WO 07/24/2021 1:34 PM FINDINGS: Lungs: Unremarkable. No consolidation. Pleural spaces: Unremarkable. No pleural effusion. No pneumothorax. Heart/Mediastinum: Unremarkable. No cardiomegaly. Bones/joints: Unremarkable. IMPRESSION: No acute findings. Dictated and Authenticated by: Hailey Perry MD. Ordering:PAYTON GANN MD
== END ==
PROVIDERS: PCP Family Medicine; Visit Provider Nurse Practitioner Family
DX: R05.9 Cough, unspecified (principal)
CPT/HCPCS: 71046

== ENCOUNTER 2022-10-08 09:39 | Outpatient (REF) | payer BC, SELFPAY ==
[2022-10-08 17:19] LABS: HCT 42.3 % (40.0-50.0); MCH 28.6 pg (27.0-33.0); MCHC 33.1 % (32.0-36.0); MCV 87 fL (80-95); MPV 10.6 fL (8.0-11.0); Platelet Count 265 10^3/uL (130-400); RBC 4.89 10^6/uL (4.36-5.78); RDW 14.2 % (11.8-14.1); RDW-SD 44.9 fL; WBC 7.11 10^3/uL (4.4-10.8)
[2022-10-08 17:43] LABS: ALT 27 U/L (16-63); AST 16 U/L (15-37); Albumin 3.6 g/dL (3.4-5.0); Alkaline Phosphatase 78 U/L (46-116); Anion Gap 8.5 mmol/L (3-11); BUN 10 mg/dL (7-18); Bilirubin, Total 0.7 mg/dL (0.2-1.0); CO2 27.5 mmol/L (21.0-32.0); CREATININE 0.8 mg/dL (0.70-1.30); Calcium 8.7 mg/dL (8.5-10.1); Calculated LDL 135 mg/dL (<100); Chloride 106 mmol/L (98-107); Cholesterol 207 mg/dL (<200); Estimated GFR 101.32 (mL/min/1.73m2); Glucose 99 mg/dL (74-106); HDL Cholesterol 54 mg/dL (40-60); Potassium 4.5 mmol/L (3.5-5.1); Sodium 142 mmol/L (136-145); Triglyceride 92 mg/dL (<150)
== END 2022-10-08 09:40 | disposition home or self-care (01) ==
LOC: NCHCN 09:39
PROVIDERS: PCP Family Medicine; Visit Provider Family Medicine
DX: Z00.00 Encounter for general adult medical examination without abnormal findings (principal); I10 Essential (primary) hypertension; M19.90 Unspecified osteoarthritis, unspecified site; B35.1 Tinea unguium
CPT/HCPCS: 80053; 80061; 84153; 85027

== ENCOUNTER 2023-12-11 22:38 | Outpatient (REF) | payer OTHER, SELFPAY ==
[2023-12-11 21:38] LABS: Abs Immature Grans 0.02 10^3/uL (0.0-0.06); Absolute Basophil Count 0.04 10^3/uL (0.0-0.2); Absolute Eosinophil Count 0.09 10^3/uL (0.0-0.7); Absolute Lymphocyte Count 1.98 10^3/uL (1.2-3.4); Absolute Monocyte Count 0.74 10^3/uL (0.1-0.8); Absolute Neutrophil Count 4.81 10^3/uL (1.2-6.7); Basophils % 0.5 %; Eosinophils % 1.2 %; HCT 45.3 % (40.0-50.0); HGB 14.9 g/dL (13.5-17.5); Immature Grans % 0.3 %; Lymphocytes % 25.8 %; MCH 28.8 pg (27.0-33.0); MCHC 32.9 % (32.0-36.0); MCV 88 fL (80-95); Monocytes % 9.6 %; Neutrophils % 62.6 %; Platelet Count 239 10^3/uL (130-400); RBC 5.17 10^6/uL (4.36-5.78); RDW-SD 42.1 fL; WBC 7.68 10^3/uL (4.4-10.8)
[2023-12-11 22:01] LABS: BUN 13 mg/dL (7-18); Calcium 9.2 mg/dL (8.5-10.1); Chloride 104 mmol/L (98-107); Estimated GFR 85.63 (mL/min/1.73m2); Glucose 92 mg/dL (74-106); Potassium 3.6 mmol/L (3.5-5.1); Sodium 142 mmol/L (136-145); TSH (W/Ref FT4) 1.01 uIU/mL (0.36-3.74)
== END 2023-12-11 22:39 | disposition home or self-care (01) ==
LOC: NCHCN 22:38
PROVIDERS: PCP Family Medicine; Visit Provider Family Medicine
DX: I10 Essential (primary) hypertension (principal); R20.2 Paresthesia of skin
CPT/HCPCS: 80048; 84443; 85025

== ENCOUNTER 2024-12-07 14:57 | Outpatient (REF) | payer OTHER, SELFPAY ==
[2024-12-07 14:29] LABS: Abs Immature Grans 0.02 10^3/uL (0.0-0.06); HCT 43.0 % (40.0-50.0); HGB 14.5 g/dL (13.5-17.5); Immature Grans % 0.3 %; MCH 29.5 pg (27.0-33.0); MCHC 33.7 % (32.0-36.0); MCV 88 fL (80-95); MPV 10.1 fL (8.0-11.0); Platelet Count 227 10^3/uL (130-400); RBC 4.91 10^6/uL (4.36-5.78); RDW 13.5 % (11.8-14.1); RDW-SD 43.5 fL; WBC 6.23 10^3/uL (4.4-10.8)
[2024-12-07 14:51] LABS: ALT 19 U/L (16-63); AST 11 U/L (15-37); Albumin 3.5 g/dL (3.4-5.0); Alkaline Phosphatase 74 U/L (46-116); Anion Gap 6.0 mmol/L (3-11); BUN 8 mg/dL (7-18); Bilirubin, Total 0.6 mg/dL (0.2-1.0); CO2 31.0 mmol/L (21.0-32.0); Calcium 8.6 mg/dL (8.5-10.1); Calculated LDL 123 mg/dL (<100); Chloride 106 mmol/L (98-107); Cholesterol 193 mg/dL (<200); Estimated GFR 100.06 (mL/min/1.73m2); Glucose 86 mg/dL (74-106); HDL Cholesterol 55 mg/dL (>or=40); Potassium 4.2 mmol/L (3.5-5.1); Sodium 143 mmol/L (136-145); TSH 0.88 uIU/mL (0.36-3.74); Total Protein 6.7 g/dL (6.4-8.2); Triglyceride 79 mg/dL (<150)
== END 2024-12-07 14:58 | disposition home or self-care (01) ==
LOC: NCHCN 14:57
PROVIDERS: PCP Family Medicine; Visit Provider Family Medicine
DX: Z00.00 Encounter for general adult medical examination without abnormal findings (principal)
CPT/HCPCS: 80053; 80061; 84443; 85025

== ENCOUNTER 2025-01-12 17:08 | Outpatient (REF) | payer OTHER, SELFPAY ==
[2025-01-12 16:13] LABS: Folate 16.4 ng/mL (8.6-20.0); Vitamin B12 266 pg/mL (193-986)
[2025-01-13 12:43] LABS: Albumin 58.3 % (55.8-66.1); Albumin g/dL 4.1 g/dL (3.6-5.2); Alpha 1 g/dL 0.30 g/dL (0.15-0.40); Alpha 2 g/dL 0.70 g/dL (0.50-1.00); Beta g/dL 1.10 g/dL (0.60-1.20); Gamma g/dL 0.90 g/dL (0.60-1.60); Total Protein 7.0 g/dL (6.3-8.2)
== END 2025-01-12 17:09 | disposition home or self-care (01) ==
LOC: NCHCN 17:08
PROVIDERS: PCP Family Medicine; Visit Provider Family Medicine
DX: K59.09 Other constipation (principal)
CPT/HCPCS: 82607; 82746; 84165